=== PATIENT | female | born 1975 | race Caucasian/White ===

== ENCOUNTER 2019-03-01 08:11 | Emergency (ER) | payer BC ==
--- OUTSIDE RECORDS SUMMARY | 2019-03-01 08:17 | XMS REPORT | Continuity of Care Document ---
:1975 External Reference #:[id number] Author Name Donna Rodríguez Care Team Providers Name Role Phone Rhonda Masterson PA Primary Care Physician Unavailable Payers Date Identification Numbers Payment Provider Subscriber Policy Number: [id number] [facility] Claribel Becerra PayID: [id number] [address] [place] [address] Problems Active Problems Provider Date Peroneal tendinitis, right leg Flo Vuong MD Onset: 10/04/2018 Peroneal tendinitis, left leg Flo Vuong MD Onset: 10/04/2018 Family History Date Family Member(s) Observation Comments General Diabetes General Heart Disease General Hypertension General Cancer Social History Type Date Description Comments Sex Unknown Marital Status Lives With Spouse Occupation Currently Working Occupation Nurse Tobacco Use Start: Unknown Never Smoked Cigarettes Smoking Status Reviewed: 02/08/19 Never Smoked Cigarettes ETOH Use Never used alcohol Tobacco Use Start: Unknown Patient has never smoked Exercise Type/Frequency Exercises sporadically Allergies, Adverse Reactions, Alerts Active Allergies Reaction Severity Comments Date Levaquin 10/04/2018 Medications Active Medications SIG Qnty Indications Ordering Provider Date Multivitamin Adult 1 by mouth every Unknown Tablets day Magnesium 27 1 by mouth per Unknown 500(27Mg) mg day Tablets Metoprolol Succinate ER 1 by mouth every Unknown day 25mg Tablets ER 24HR Vital Signs Date Vital Result Comment 02/08/2019 2:31pm Height 66 inches 5'6" Weight 272.00 lb BP Systolic 132 mmHg BP Diastolic 84 mmHg Respiratory Rate 18 /min Pain Level 5 BMI (Body Mass Index) 43.9 kg/m2 01/16/2019 8:08am Height 66 inches 5'6" Weight 272.00 lb BP Systolic 124 mmHg BP Diastolic 88 mmHg Respiratory Rate 16 /min Body Temperature 96.3 F Pain Level 5 BMI (Body Mass Index) 43.9 kg/m2 11/15/2018 8:19am Height 66 inches 5'6" Weight 272.00 lb BP Systolic 120 mmHg BP Diastolic 82 mmHg Respiratory Rate 16 /min Body Temperature 96.2 F Pain Level 3 BMI (Body Mass Index) 43.9 kg/m2 10/04/2018 10:28am Height 66 inches 5'6" Weight 272.00 lb Heart Rate 70 /min BP Systolic 120 mmHg BP Diastolic 82 mmHg Respiratory Rate 18 /min Pain Level 4 BMI (Body Mass Index) 43.9 kg/m2 Encounters Type Date Location Provider Dx Diagnosis Office Visit 01/16/2019 [facility] Mary [id number] Peroneal 8:30a Of [facility] hussein, left leg [id number] Peroneal tendinitis, right leg Office Visit 11/15/2018 8:00a Orthopedic Flo Vuong [id number] Per[facility]al Services Of MD hussein, left Alfredo.M.A. leg [id number] Peroneal tendinitis, right leg Office Visit 10/04/2018 10:30a Orthopedic Mary [email or web address] Peroneal Services Of MD hussein, left C.M.A. leg [id number] Peroneal tendinitis, right leg Plan of Treatment 01/16/2019 - Flo Vuong [id number] Peroneal tendinitis, left legFollow up: Follow Up: after testing / imaging is [id number] Peroneal tendinitis, right leg
[2019-03-01 08:23] VITALS: BP 127/89
--- NOTE | 2019-03-01 09:01 | UC ---
Respiratory Complaint HPI - HPI Summary HPI Summary: 44-year-old woman comes in with a chief complaint of cough and chest congestion for 2 weeks. Patient's using her albuterol inhalers and also is on a azithromycin. Also has been taking guaifenesin. Overall the cough is not improving. No fevers or chills. Denies any wheezing feels like the congestion is more in the upper chest. No edema. No chest pain. The [id number] medicines or not helping. - History of Current Complaint Chief Complaint: UCRespiratory Stated Complaint: COUGH Time Seen by Provider: 03/01/19 08:48 Pain Intensity: 5 - Allergies/Home Medications Allergies/Adverse Reactions: Allergies Allergy/AdvReac Type Severity Reaction Status Date / Time levofloxacin [From Levaquin] Allergy Intermediate RUPTURED Verified 03/01/19 08: 24 TENDON Home Medications: Home Medications Albuterol HFA INHALER* [Ventolin HFA Inhaler*] 2 puff INH Q4H PRN 03/01/19 [ History Confirmed 03/01/19] Azithromyxin TIGRE (NF) [Z-Tigre (Zithromax) 250 mg tabs #6] 2 tab PO .TODAY, THEN 1 DAILY 03/01/19 [History Confirmed 03/01/19] Benzonatate CAP* [Tessalon 100 MG CAP*] 100 mg PO TID 03/01/19 [History Confirmed 03/01/19] Fluoxetine HCl [Prozac] 20 mg PO DAILY WITH MEAL 03/01/19 [History Confirmed ] Ipratropium HFA INHALER(NF) [Atrovent Hfa Inhaler(NF)] 2 puff INH Q6H 03/01/19 [ History Confirmed 03/01/19] Liraglutide [Saxenda] 3 mg SQ DAILY WITH MEAL 03/01/19 [History Confirmed ] Metoprolol Succinate [Metoprolol Succinate ER] 25 mg PO DAILY WITH MEAL [History Confirmed 03/01/19] PMH/Surg Hx/FS Hx/Imm Hx Previously Healthy: Yes Cardiovascular History: Hypertension Respiratory History: Asthma - Surgical History Surgical History: Yes Surgery Procedure, Year, and Place: LIPOMA REMOVED FROM ANKLE. CARDIAC ABLASION 2016 - Family History Known Family History: Positive: Non-Contributory - Social History Alcohol Use: Rare Substance Use Type: None Smoking Status (MU): Never Smoked Tobacco Review of Systems All Other Systems Reviewed And Are Negative: Yes Constitutional: Positive: Negative Skin: Positive: Negative Eyes: Positive: Negative ENT: Positive: Negative Respiratory: Positive: Cough, Other - SEE HPI Cardiovascular: Positive: Negative Gastrointestinal: Positive: Negative Motor: Positive: Negative Neurovascular: Positive: Negative Musculoskeletal: Positive: Negative Neurological: Positive: Negative Psychological: Positive: Negative Is Patient Immunocompromised?: No Physical Exam Triage Information Reviewed: Yes Appearance: Well-Appearing, No Pain Distress, Well-Nourished Vital Signs: Initial Vital Signs Temp 97.3 F 03/01/19 08:19 Pulse 78 03/01/19 08:19 Resp 20 03/01/19 08:19 BP 127/89 03/01/19 08:19 Pulse Ox 96 03/01/19 08:19 Vital Signs Reviewed: Yes Eye Exam: Normal Eyes: Positive: Conjunctiva Clear ENT: Positive: Pharyngeal erythema, TMs normal Neck: Positive: Supple Respiratory: Positive: Lungs clear, Normal breath sounds, No respiratory distress Cardiovascular: Positive: RRR Musculoskeletal Exam: Normal Musculoskeletal: Positive: Strength Intact, ROM Intact, No Edema - NO CALF TENDERNESS Neurological: Positive: Alert, Muscle Tone Normal Psychological: Positive: Age Appropriate Behavior Skin Exam: Normal Respiratory Course/Dx - Course Course Of Treatment: At this time can start prednisone to help open up the lungs. Also Robitussin with codeine to help more with the cough. We discussed getting a chest x-ray. At this time without any chest pain or fever of the chance of a pneumonia is low. However with her not improving in these azithromycin we will add the beta lactam cefdinir. Patient follow-up with primary care doctor she's can get reevaluated sooner if worse or any questions or concerns. - Differential Dx/Diagnosis Provider Diagnosis: Bronchitis with bronchospasm Discharge - Sign-Out/Discharge Documenting (check all that apply): Patient Departure All imaging exams completed and their final reports reviewed: No Studies - Discharge Plan Condition: Stable Disposition: HOME Prescriptions: Cefdinir [Cefdinir 300 MG CAP] 300 mg PO BID #14 cap guaiFENesin/CODIEN 100MG-10MG* [Robitussin AC 100Mg-10Mg*] 10 ml PO Q4H PRN # 180 ml MDD 60ML PRN Reason: Cough predniSONE TAB* [Deltasone 20 MG TAB*] 40 mg PO DAILY #10 tab Patient Education Materials: Acute Bronchitis (ED), Bronchospasm (ED) Referrals: Aleja SANTANA,Rhonda Lyman [Primary Care Provider] - Additional Instructions: FOLLOW UP WITH YOUR DOCTOR IF NOT COMPLETELY IMPROVED. GET RECHECKED SOONER IF YOUR CONDITION DOES NOT IMPROVE OR WORSENS OR ANY QUESTIONS OR CONCERNS. - Billing Disposition and Condition Condition: STABLE Disposition: Home
== END 2019-03-01 09:06 | disposition home or self-care (01) ==
LOC: UCEAST 08:11
DX: J20.9 Acute bronchitis, unspecified (principal); I10 Essential (primary) hypertension; J45.909 Unspecified asthma, uncomplicated
CPT/HCPCS: 99212; G0463

== ENCOUNTER 2019-08-29 08:35 | Day surgery (SDC) | payer BC ==
[~2019-08-29 08:35] MED LIST: Buffered Lidocaine 1% SYRIN* 1 ML/SYRINGE INTRADERM ONE; Lactated Ringers 1000 ML Bag* 1,000 ML IV SCH
[2019-08-29] MEDS ORDERED: ceFAZolin 1 GM ADVAN(*) 1 GM ADDV.VIAL IVPB ONE (09:04)
[2019-08-29] MEDS ORDERED: Buffered Lidocaine 1% SYRIN* 1 ML/SYRINGE INTRADERM ONE (09:04)
[2019-08-29] MEDS ORDERED: ceFAZolin 2 GM PREMIX in ORs 2 GM/50 ML BAG ONE (09:04)
[2019-08-29] MEDS ORDERED: fentaNYL* 50 MCG/ML 2 ML VIAL (100 MCG VIAL) ONE ×2 (09:16→13:46)
[2019-08-29] MEDS ORDERED: Midazolam* 1 MG/ML 2 ML VIAL (2 MG) ONE (09:16)
[2019-08-29] MEDS ORDERED: Levalbuterol 1.25MG/0.5ML NEB ONE (10:58)
[2019-08-29] MEDS ORDERED: Bupivacaine 0.25% EPI 200,000* 30 ML SDV ONE (11:12)
[2019-08-29] MEDS ORDERED: Ondansetron INJ* 2 MG/ML VIAL ONE (11:58)
[2019-08-29] MEDS ORDERED: Ketorolac INJ* 30 MG/ML 1 ML VIAL ONE (11:58)
[2019-08-29] MEDS ORDERED: Metoclopramide IV* 5 MG/ML 2 ML VIAL ONE (11:58)
[2019-08-29] MEDS ORDERED: Dexamethasone IV* 4 MG/ML 1 ML (4 MG) ONE (11:58)
[2019-08-29] MEDS ORDERED: Bupivacaine 0.25% SDV* 30 ML ONE (12:40)
[2019-08-29] MEDS ORDERED: oxyCODONE TAB* 5 MG TAB PO PRN (13:12)
[2019-08-29] MEDS ORDERED: Naloxone* 0.4 MG/ML 1 ML VIAL IV PRN (13:12)
[2019-08-29] MEDS ORDERED: Acetaminophen TAB* 325 MG PO PRN (13:12)
[2019-08-29] MEDS ORDERED: DiMENhydriNATE IV* 50 MG/ML VIAL IV PUSH PRN (13:12)
[2019-08-29] MEDS ORDERED: DiMENhydriNATE IV* 50 MG/ML VIAL ONE (13:46)
[2019-08-29] MEDS ORDERED: oxyCODONE TAB* 5 MG TAB ONE (13:46)
[2019-08-29] MEDS: fentaNYL* 50 MCG/ML 2 ML VIAL (100 MCG VIAL) IV PRN ×2 (13:58→14:10)
[2019-08-29] MEDS ORDERED: Acetaminophen TAB* 325 MG ONE (14:05)
[2019-08-29] MEDS ORDERED: Sugammadex * 200 MG/2 ML VIAL IV PUSH ONE (15:06)
[2019-08-29 15:27] VITALS: BP 127/84
--- NOTE | 2019-08-29 16:59 | OP ---
Operative Report - Blank - Operative Report Date of Operation: 08/29/19 Note: PATIENT: Claribel Becerra DATE OF : 1975 DATE OF SURGERY: 08/29/2019 SURGEON: Flo Vuong MD HEAT TREATMENT TECHNICIAN: ESTHER Ferreira, whos assistance was necessary for positioning, retraction, help with instrumentation, and closure. ANESTHESIOLOGIST: Dr. Hernandez PREOPERATIVE DIAGNOSIS: Left peroneal tenosynovitis and peroneus brevis tear. POSTOPERATIVE DIAGNOSIS: Left peroneal tenosynovitis and peroneus brevis tear. OPERATION: 1. Left peroneus brevis tendon repair. 2. Left synovectomy of peroneal tendon sheath. 3. Left peroneal tendon stabilization procedure with fibular groove deepening osteotomy. ANESTHESIA: General IMPLANTS: none TOURNIQUET TIME: Less than 2 hours with a well-padded thigh tourniquet at 250 mmHg. SPECIMENS: none ESTIMATED BLOOD LOSS: minimal COMPLICATIONS: none STATUS: Stable from the operating room to the recovery room and then home. INDICATIONS FOR PROCEDURE: Claribel has had persistent left lateral ankle pain and swelling despite extensive nonoperative treatment. Both operative and non operative treatment alternatives were reviewed. Further, the nature and risks of surgery were reviewed in careful detail, in the office as well as the pre-operative holding area. Our discussions regarding the risks of surgery included, but were not limited to, infection, wound problems, nerve injury, neuroma, RSD, persistent symptoms, blood clot, failure of the surgery, recurrent instability and even the remote chance of catastrophic complication. DESCRIPTION OF PROCEDURE: The patient was seen in the preoperative holding unit and informed written consent was obtained. The appropriate extremity was marked. The patient was then brought to the operating room and carefully positioned on the operating room table. Anesthesia was induced. All bony prominences were padded with great care. A chlorhexidine based pre-scrub was performed followed by a chloraprep prep and drape in standard sterile fashion. A surgical safety pause was then conducted in which we confirmed the appropriate patient, extremity, planned procedure, availability of equipment, indication and administration of prophylactic antibiotics, and DVT prophylaxis in the form of a compression boot on the non-surgical extremity. An Esmarch exsanguination of the limb was then performed and the tourniquet inflated. I utilized an incision overlying the peroneal tendons laterally. I carried the dissection down through the soft tissue to the level of the periosteum and superior peroneal retinaculum (SPR) with care taken to protect the sural nerve, which was not visualized during the procedure. I carefully incised the SPR off of the posterior fibula to expose the peroneal tendons. Dissection of the tendons was carried distally. There was a large amount of inflamed tenosynovium within the tendon sheath. An extensive synovectomy was performed. Additionally, there was a low-lying peroneus brevis muscle belly which was debrided and excised. The tendons were explored at this time for any tears. There was a longitudinal split tear of the peroneus brevis at the level of the distal fibula and retro-fibular groove. I removed a small slip of loose frayed tendon in this area, leaving approximately 90% of the tendon intact. I then utilized a 3-0 Ethibond suture to repair the tendon tear. At this point, I carefully inspected the peroneal groove at the posterior aspect of the fibula. This was an abnormally shallow groove and I therefore elected to perform a groove deepening osteotomy procedure. I utilized a small sagittal saw to create a longitudinal osteotomy in the fibula at the margin of the insertion of the SPR. I then utilized a bone tamp and a mallet to impact this area, deepening the groove. I took care to ensure that there were no sharp bony prominences in this area. At this point I carefully planned out the repair of the superior peroneal retinaculum. I then reduced the tendons and they sat nicely in the deepened retro-fibular groove. The wound was copiously irrigated. I repaired the SPR utilizing #1 Vicryl suture in a transosseous horizontal mattress suture pattern. I utilized multiple sutures for this repair, appropriately tensioning the SPR. I was able to pass a Solen under the repaired SPR without difficulty after the repair. We then irrigated the wound copiously again. The wound was closed in a layered fashion utilizing 3-0 Monocryl and 3-0 nylon. A sterile dressing was then applied and the ankle was splinted in a neutral position. All needle and sponge counts were correct at the end of the case. The patient was awakened from anesthesia and transferred to the recovery room in stable condition. There were no complications. ATTESTATION: I attest I was present and scrubbed and performed the critical portions of the procedure myself. POST-OPERATIVE PLAN: The patient will remain [id number] for an anticipated duration of 6 weeks. Follow up will be in 2 weeks for likely suture removal and transition into a short leg cast. We will use aspirin for DVT prophylaxis.
== END 2019-08-29 15:28 | disposition home or self-care (01) ==
LOC: OR 08:35
PROVIDERS: ATTEND Orthopaedic Surgery
DX: S86.312D Strain of muscle(s) and tendon(s) of peroneal muscle group at lower leg level, left leg, subsequent encounter (principal); M65.872 Other synovitis and tenosynovitis, left ankle and foot; M25.372 Other instability, left ankle; J45.909 Unspecified asthma, uncomplicated; I27.20 Pulmonary hypertension, unspecified; X58.XXXD Exposure to other specified factors, subsequent encounter; Y92.9 Unspecified place or not applicable
CPT/HCPCS: 81025; A9270-GY; C1776; J0690; J1100; J1240; J1885; J2250; J2405; J2765; J3010; J3490

== ENCOUNTER 2020-03-23 16:15 | Observation (INO) ==
[2020-03-23] MEDS ORDERED: NS 0.9% 1000 ml BAG 1,000 ML IV ONE (16:32)
[2020-03-23 17:44] LABS: ABS Lymphocytes 1.1 10^3/ul (1.0-4.8); ABS Monocytes 0.3 10^3/ul (0-0.8); ABS Neutrophils 7.4 10^3/ul (1.5-7.7); Eosinophil % 0.3 %; Hematocrit 26 % (35-47); Hemoglobin 8.8 g/dL (12.0-16.0); Lymphocyte % 12.6 %; Mean Corpuscular HGB Conc 34 g/dL (31-36); Mean Corpuscular Hemoglobin 31 pg (27-31); Mean Corpuscular Volume 90 fL (80-97); Mean Platelet Volume 7.5 fL (7.4-10.4); Platelet Count 297 10^3/uL (150-450); Red Blood Count 2.86 10^6 /uL (3.70-4.87); Red Cell Distribution Width 15 % (10-15); White Blood Count 8.9 10^3/uL (3.5-10.8)
[2020-03-23 18:08] LABS: ALT 11 U/L (7-52); AST 12 U/L (13-39); Albumin 3.4 g/dL (3.2-5.2); Albumin/Globulin Ratio 1.5 (1-3); Alkaline Phosphatase 43 U/L (34-104); Anion Gap 8 mmol/L (2-11); BUN/Creatinine Ratio 16.5 (8-20); Blood Urea Nitrogen 13 mg/dL (6-24); CO2 Carbon Dioxide 22 mmol/L (22-32); Calcium 8.3 mg/dL (8.6-10.3); Chloride 106 mmol/L (101-111); EGFR African American 95.7 (>60); EGFR Non-African American 79.1 (>60); Globulin 2.2 g/dL (2-4); Glucose 159 mg/dL (70-100); Potassium 3.6 mmol/L (3.5-5.0); Sodium 136 mmol/L (135-145); Total Protein 5.6 g/dL (6.4-8.9)
[2020-03-23 18:12] LABS: HCG Pregnancy < 0.60 mIU/mL
[2020-03-23] MEDS ORDERED: Ondansetron 4 mg VIAL 2 MG/ML 2 ml VIAL IV ONE (19:29)
[2020-03-23 21:23] LABS: T4, Total 6.93 mcg/dL (6.09-12.23)
[2020-03-23 21:24] LABS: TSH Ultra Thyroid Stim Horm 1.06 mcIU/mL (0.34-5.60)
[2020-03-23 21:30] LABS: Prolactin 16.7 ng/mL (1.0-25.0)
[2020-03-23 21:33] LABS: Total T3 90 ng/dL (87-178)
[2020-03-23 22:06] LABS: Free T4 0.61 ng/dL (0.61-1.12)
[2020-03-24] MEDS ORDERED: NS 0.9% 1000 ml BAG 1,000 ML IV ONE (00:17)
[2020-03-24 00:27] LABS: ABS Monocytes 0.5 10^3/ul (0-0.8); ABS Neutrophils 6.6 10^3/ul (1.5-7.7); Eosinophil % 0.1 %; Hematocrit 21 % (35-47); Hemoglobin 7.1 g/dL (12.0-16.0); Mean Corpuscular HGB Conc 34 g/dL (31-36); Mean Corpuscular Hemoglobin 31 pg (27-31); Mean Corpuscular Volume 91 fL (80-97); Mean Platelet Volume 7.8 fL (7.4-10.4); Nucleated Red Blood Cells % 0.1; Platelet Count 274 10^3/uL (150-450); Red Blood Count 2.33 10^6 /uL (3.70-4.87); Red Cell Distribution Width 15 % (10-15); White Blood Count 9.2 10^3/uL (3.5-10.8)
[2020-03-24 09:05] LABS: Hematocrit 23 % (35-47); Hemoglobin 8.2 g/dL (12.0-16.0)
[2020-03-24 09:15] LABS: Activated Partial Thrombo Time 25.2 seconds (26.0-38.0); INR 1.09 (0.82-1.09)
[2020-03-24 10:23] LABS: Hematocrit 23 % (35-47); Hemoglobin 7.9 g/dL (12.0-16.0); Mean Corpuscular HGB Conc 35 g/dL (31-36); Mean Corpuscular Hemoglobin 30 pg (27-31); Mean Corpuscular Volume 87 fL (80-97); Mean Platelet Volume 7.6 fL (7.4-10.4); Platelet Count 203 10^3/uL (150-450); Red Blood Count 2.61 10^6 /uL (3.70-4.87); Red Cell Distribution Width 16 % (10-15); White Blood Count 7.2 10^3/uL (3.5-10.8)
[2020-03-24] MEDS ORDERED: Iron Sucrose 200 MG in NS 0.9% 100 ml BAG 100 ML IVPB ONE (10:30)
[2020-03-24 14:52] LABS: Hematocrit 21 % (35-47); Hemoglobin 7.2 g/dL (12.0-16.0)
[2020-03-24] MEDS ORDERED: NS 0.9% 1000 ml BAG 1,000 ML IV SCH (17:30)
[2020-03-25 02:30] LABS: Hematocrit 25 % (35-47); Hemoglobin 8.7 g/dL (12.0-16.0)
[2020-03-25 06:38] LABS: ABS Eosinophils 0.1 10^3/ul (0-0.6); ABS Lymphocytes 1.9 10^3/ul (1.0-4.8); ABS Monocytes 0.5 10^3/ul (0-0.8); ABS Neutrophils 5.3 10^3/ul (1.5-7.7); Eosinophil % 0.9 %; Hematocrit 25 % (35-47); Hemoglobin 8.7 g/dL (12.0-16.0); Lymphocyte % 24.3 %; Mean Corpuscular HGB Conc 35 g/dL (31-36); Mean Corpuscular Hemoglobin 31 pg (27-31); Mean Corpuscular Volume 88 fL (80-97); Mean Platelet Volume 7.8 fL (7.4-10.4); Nucleated Red Blood Cells % 0.1; Platelet Count 178 10^3/uL (150-450); Red Blood Count 2.84 10^6 /uL (3.70-4.87); Red Cell Distribution Width 15 % (10-15); White Blood Count 7.8 10^3/uL (3.5-10.8)
[2020-03-25 06:53] LABS: BUN/Creatinine Ratio 9.6 (8-20); Calcium 7.5 mg/dL (8.6-10.3); EGFR African American 104.8 (>60); EGFR Non-African American 86.6 (>60); Potassium 3.8 mmol/L (3.5-5.0)
[2020-03-25 10:45] VITALS: BP 98/54
[2020-03-26 23:25] LABS: Coagulation F VIII Activity 124 % (55 - 200)
== END 2020-03-25 10:45 | disposition home or self-care (01) ==
LOC: ED 16:15 → MEDTELE 16:15
PROVIDERS: ADMIT Obstetrics & Gynecology; ATTEND Internal Medicine

== ENCOUNTER 2023-10-28 09:18 | Inpatient (IN) ==
[2023-10-28] MEDS ORDERED: fentaNYL 100 mcg/2 ml 50 MCG/ML VIAL ONE (09:26)
[2023-10-28] MEDS ORDERED: Ondansetron 4 mg VIAL 2 MG/ML 2 ml VIAL ONE (09:29)
[2023-10-28] MEDS: fentaNYL 100 mcg/2 ml 50 MCG/ML VIAL IV SLOW PU ONE (09:30)
[2023-10-28 09:59] LABS: ABS Eosinophils 0.1 10^3/uL (0.0-0.5); ABS Lymphocytes 2.5 10^3/uL (1.0-4.8); ABS Neutrophils 5.2 10^3/uL (1.5-7.6); ABS Nucleated RBC 0.02 10^3/ul; Eosinophil % 0.8 %; Hemoglobin 14.7 g/dL (11.5-14.3); Lymphocyte % 28.1 %; Mean Corpuscular Hemoglobin 30.1 pg (27-33); Mean Corpuscular Hgb Conc 33.4 g/dL (31-36); Mean Platelet Volume 8.4 fL (7.5-11.2); Nucleated Red Blood Cells % 0.2 %/100WBC (0.0-0.8); Platelet Count 326 10^3/uL (150-450); Red Blood Count 4.89 10^6/uL (3.63-4.92); Red Cell Distribution Width 14.3 % (12-17); White Blood Count 8.7 10^3/uL (3.8-11.8)
[2023-10-28 10:20] LABS: ALT 122 U/L (7-52); Albumin 3.8 g/dL (3.2-5.2); Albumin/Globulin Ratio 1.7 (1-3); Alkaline Phosphatase 155 U/L (35-149); Anion Gap 12 mmol/L (2-16); Blood Urea Nitrogen 9 mg/dL (6-24); CO2 Carbon Dioxide 22 mmol/L (22-32); Calcium 8.6 mg/dL (8.6-10.3); Chloride 103 mmol/L (101-111); Creatinine, Serum 0.95 mg/dL (0.51-0.95); Globulin 2.3 g/dL (2-4); Glucose 182 mg/dL (70-100); Sodium 137 mmol/L (135-145); Total Bilirubin 0.6 mg/dL (0.2-1.0); Total Protein 6.1 g/dL (6.4-8.9); eGFR CKD-EPI 74.4 (>60)
[2023-10-28 11:29] LABS: Magnesium 1.1 mg/dL (1.9-2.7); Potassium Redraw 2.4 mmol/L (3.5-5.0)
[2023-10-28] MEDS: Potassium EFFERVES 25 meq TAB PO ONE (12:20)
[2023-10-28] MEDS: KCL 20 MEQ/100 ML IVPREMIX 20 MEQ/100 ML BAG IV SCH (12:20)
[2023-10-28] MEDS: Magnesium Sulf 4 GM/100 ML IV 4,000 MG/100 ML BAG IVPB ONE (14:21)
[2023-10-28] MEDS ORDERED: Sulfur Hexaflouride MICROSPHR 25 MG VIAL ONE (16:44)
[2023-10-28 18:22] LABS: Magnesium 3.3 mg/dL (1.9-2.7); Potassium 4.8 mmol/L (3.5-5.0)
[2023-10-29] MEDS: NS 0.9% 1000 ml BAG 1,000 ML IV SCH (02:20)
[2023-10-29 06:28] LABS: Calcium 8.6 mg/dL (8.6-10.3); Creatinine, Serum 0.68 mg/dL (0.51-0.95); Potassium 4.5 mmol/L (3.5-5.0)
[2023-10-29] MEDS: fentaNYL 100 mcg/2 ml 50 MCG/ML VIAL IV SLOW PU ONE (08:19)
[2023-10-29] MEDS: Midazolam 10 mg/10 ml VIAL 1 mg/ml 10 ml VIAL (10 mg) IV SLOW PU ONE (08:19)
[2023-10-29] MEDS ORDERED: Midazolam 5 mg/5 ml VIAL 1 mg/ml 5 ml VIAL (5 mg) ONE (09:34)
[2023-10-29] MEDS ORDERED: VERAPAMIL 2.5 MG/ML 2 ML VIAL ** 5 mg/2 ml ONE (09:34)
[2023-10-29] MEDS ORDERED: fentaNYL 100 mcg/2 ml 50 MCG/ML VIAL ONE (09:34)
[2023-10-29] MEDS ORDERED: Iohexol 350 (CONTRAST) 200 ML MDV IV ONE (09:35)
[2023-10-29] MEDS ORDERED: Heparin 2 UNITS/ML 1000 mls 1,000 ML IV ONE ×2 (09:35→09:39)
[2023-10-29] MEDS ORDERED: nitroGLYCERIN DRIP 25,000 MCG/250 ML BTL ONE (09:35)
[2023-10-29] MEDS ORDERED: Heparin 1,000 UNIT/ML 10 ml (10,000 UNITS) CATHLAB/DIALYSIS ONE (09:35)
[2023-10-29] MEDS ORDERED: Lidocaine 1% MPF 5 ML VIAL ONE (10:08)
[2023-10-29] MEDS ORDERED: Iohexol 350 (CONTRAST) 100 ML PAK IV ONE (10:21)
[2023-10-30 06:50] LABS: Calcium 8.9 mg/dL (8.6-10.3); Creatinine, Serum 0.54 mg/dL (0.51-0.95); eGFR CKD-EPI 114.2 (>60)
[2023-10-31 06:58] LABS: Calcium 9.3 mg/dL (8.6-10.3); Creatinine, Serum 0.73 mg/dL (0.51-0.95); Potassium 4.2 mmol/L (3.5-5.0)
[2023-11-01 07:02] LABS: Calcium 9.1 mg/dL (8.6-10.3); Creatinine, Serum 0.71 mg/dL (0.51-0.95); Potassium 4.1 mmol/L (3.5-5.0); eGFR CKD-EPI 105.5 (>60)
[2023-11-02 09:32] VITALS: BP 111/75
== END 2023-11-02 11:20 | disposition home or self-care (01) | DRG 192 ==
LOC: ED 09:18 → EDHOLD 15:44 → MEDTELE 16:32
PROVIDERS: ADMIT Specialist; ATTEND Specialist